=== PATIENT | female | born 1985 | race Caucasian/White ===

== ENCOUNTER 2017-12-29 08:19 | Emergency (ER) | payer MEDICAID, OTHER, SELFPAY ==
[2017-12-29] MEDS ORDERED: Lidocaine 1% w/Epinephrine 1:100K 20 ML VIAL ONE (09:43)
== END 2017-12-29 10:32 | disposition home or self-care (01) ==
LOC: ERS 08:19
DX: N76.4 Abscess of vulva (principal); J45.909 Unspecified asthma, uncomplicated; F31.9 Bipolar disorder, unspecified; F41.9 Anxiety disorder, unspecified; F17.210 Nicotine dependence, cigarettes, uncomplicated
CPT/HCPCS: 56405; J2001

== ENCOUNTER 2018-01-29 12:30 | Emergency (ER) | payer SELFPAY ==
[2018-01-29 14:42] LABS: Pregnancy Test - Urine (BHCG) Negative (Negative); Pregu Control Background? CLEAR/WHITE (CLR/WHITE); Pregu Control Bar Appear? YES (CONTROL BAR); Specific Gravity 1.021 (1.002-1.036)
== END 2018-01-29 15:06 | disposition home or self-care (01) ==
LOC: ERS 12:30
DX: N76.0 Acute vaginitis (principal); J45.909 Unspecified asthma, uncomplicated; F41.9 Anxiety disorder, unspecified; F17.210 Nicotine dependence, cigarettes, uncomplicated
CPT/HCPCS: 81025; 99283